=== PATIENT | male | born 1960 ===

== ENCOUNTER 2020-02-04 09:39 | Outpatient (CLI) | payer OTHER | END 2020-02-04 09:44 | disposition home or self-care (01) | LOC: SONOGRAMA 09:39 | PROVIDERS: ATTEND Pathology Anatomic Pathology & Clinical Pathology | DX: N63.10 Unspecified lump in the right breast, unspecified quadrant (principal); R92.0 Mammographic microcalcification found on diagnostic imaging of breast ==